=== PATIENT | male | born 1995 | race Caucasian/White ===

== ENCOUNTER 2021-05-08 22:08 | Emergency (ER) | payer OTHER ==
[~2021-05-08] VITALS: Ht 165.1 cm; Wt 64.0 kg
[2021-05-08 22:11] VITALS: BP 103/55
== END 2021-05-09 01:07 | disposition home or self-care (01) ==
LOC: ER 22:08
DX: M25.562 Pain in left knee (principal)
CPT/HCPCS: 73562; 99283